=== PATIENT | male | born 1990 | race African-American/Black ===

== ENCOUNTER 2020-11-05 17:59 | Emergency (ER) | payer SELFPAY ==
[~2020-11-05] VITALS: Wt 95.3 kg
[~2020-11-05 17:59] MED LIST: IBU-8800 MG PO; MOTRIN600 MG PO
== END 2020-11-05 21:49 | disposition left against medical advice (07) ==
LOC: ED 17:59
DX: J00 Acute nasopharyngitis [common cold] (principal); Z53.21 Procedure and treatment not carried out due to patient leaving prior to being seen by health care provider

== ENCOUNTER 2022-05-06 18:36 | Inpatient (IN) | payer SELFPAY ==
[~2022-05-06] VITALS: Ht 187.9 cm; Wt 94.1 kg
[2022-05-06 18:50] VITALS: BP 133/82
[2022-05-06 20:44] LABS: HEMATOCRIT 53.2 % (42.0-52.0); MEAN CELL VOLUME 82.7 fl (80.0-94.0); MEAN CORPUSCULAR HGB 27.4 pg (27.0-31.0); MEAN CORPUSCULAR HGB CONC 33.1 g/dl (33.0-37.0); MEAN PLATELET VOLUME 9.7 fl (9.6-12.3); PLATELET COUNT AUTOMATED 608 10*3/uL (130-400); RED BLOOD COUNT 6.43 10*6/uL (4.50-5.90); WHITE BLOOD COUNT 14.5 10*3/uL (4.8-10.8)
[2022-05-06 21:00] LABS: MANUAL DIFF REFLEX YES
[2022-05-06 21:05] LABS: CREATININE 3.27 mg/dL (0.70-1.30); POTASSIUM 3.4 mmol/L (3.5-5.1); TOTAL PROTEIN 9.5 gm/dL (6.4-8.2)
[2022-05-06 21:26] LABS: ATYPICAL LYMPHS 2 % (0-0); PLATELET SUFFICIENCY HIGH (NORMAL); TOTAL CELLS COUNTED 100 #CELLS
[2022-05-07 01:28] LABS: CREATININE 2.61 mg/dL (0.70-1.30); POTASSIUM 3.5 mmol/L (3.5-5.1)
[2022-05-07 03:10] LABS: MEAN CELL VOLUME 82.6 fl (80.0-94.0); MEAN CORPUSCULAR HGB 28.4 pg (27.0-31.0); MEAN CORPUSCULAR HGB CONC 34.4 g/dl (33.0-37.0); MEAN PLATELET VOLUME 9.4 fl (9.6-12.3); PLATELET COUNT AUTOMATED 476 10*3/uL (130-400); RED BLOOD COUNT 5.45 10*6/uL (4.50-5.90); RED CELL DISTRI WIDTH 14.4 % (0-14.5); WHITE BLOOD COUNT 13.7 10*3/uL (4.8-10.8)
[2022-05-07 03:14] LABS: MANUAL DIFF REFLEX YES
[2022-05-07 03:27] LABS: CREATININE 2.58 mg/dL (0.70-1.30); POTASSIUM 3.6 mmol/L (3.5-5.1)
[2022-05-07 03:40] LABS: PLATELET SUFFICIENCY HIGH (NORMAL); TOTAL CELLS COUNTED 100 #CELLS
[2022-05-07 05:23] VITALS: BP 119/67
[2022-05-07 11:54] LABS: BILIRUBIN Negative (Negative); BLOOD Negative (Negative); CLARITY Clear (Clear); COLOR Yellow (Yellow); GLUCOSE Negative (Negative); KETONE Negative (Negative); LEUKO ESTERASE Negative (Negative); NITRITE Negative (Negative); PH 5.5 (4.5-8.0); SPECIFIC GRAVITY 1.015 (1.001-1.030); UROBILINOGEN 0.2 E.U./dl (0.0-1.0)
[2022-05-07 12:02] LABS: URINE AMPHETAMINES < 1000 (1000ng/ml); URINE BARBITURATES < 200 (200ng/ml); URINE BENZODIAZEPINES < 200 (200ng/ml); URINE CANNABINOIDS (THC) < 50 (50ng/ml); URINE COCAINE < 300 (300ng/ml); URINE METHADONE < 300 (300ng/ml); URINE OPIATES < 300 (300ng/ml)
[2022-05-07 12:03] LABS: URINE PHENCYCLIDINE < 25 (25ng/ml)
[2022-05-07 12:14] VITALS: BP 124/67
[2022-05-07 12:21] LABS: RBC 0-2 rbc/hpf (0-2); WBC 0-2 wbc/hpf (0-5)
[2022-05-07 14:52] VITALS: BP 143/63
[2022-05-07 16:23] VITALS: BP 168/93
[2022-05-07 20:00] VITALS: BP 162/76
[2022-05-08] VITALS: BP 149/86
[2022-05-08 06:56] LABS: HEMATOCRIT 41.1 % (42.0-52.0); MEAN CELL VOLUME 85.4 fl (80.0-94.0); MEAN CORPUSCULAR HGB 28.7 pg (27.0-31.0); MEAN CORPUSCULAR HGB CONC 33.6 g/dl (33.0-37.0); MEAN PLATELET VOLUME 9.3 fl (9.6-12.3); PLATELET COUNT AUTOMATED 457 10*3/uL (130-400); RED BLOOD COUNT 4.81 10*6/uL (4.50-5.90); RED CELL DISTRI WIDTH 14.3 % (0-14.5)
[2022-05-08 07:05] LABS: MANUAL DIFF REFLEX YES
[2022-05-08 07:14] LABS: CHLORIDE 107 mmol/L (98-107); POTASSIUM 3.4 mmol/L (3.5-5.1); SODIUM 138 mmol/L (136-145)
[2022-05-08 07:24] LABS: ALKALINE PHOSPHATASE 86 U/L (45-117); BUN 30 mg/dl (7-24); CREATININE 1.35 mg/dL (0.70-1.30); SGOT/AST 46 IU/L (3-35); SGPT/ALT 89 U/L (12-78)
[2022-05-08 07:33] LABS: ATYPICAL LYMPHS 2 % (0-0); TOTAL CELLS COUNTED 100 #CELLS
[2022-05-08 07:34] LABS: OVALOCYTES FEW; PLATELET SUFFICIENCY HIGH (NORMAL); POLYCHROMASIA SLIGHT
[2022-05-08 08:00] VITALS: BP 152/93
[2022-05-08 12:00] VITALS: BP 142/80
[2022-05-08 16:00] VITALS: BP 130/83
[2022-05-08 20:00] VITALS: BP 153/81
[2022-05-09] VITALS: BP 149/68
[2022-05-09 06:49] LABS: HEMATOCRIT 37.9 % (42.0-52.0); MEAN CELL VOLUME 85.4 fl (80.0-94.0); MEAN CORPUSCULAR HGB 29.1 pg (27.0-31.0); MEAN PLATELET VOLUME 9.1 fl (9.6-12.3); PLATELET COUNT AUTOMATED 417 10*3/uL (130-400); RED BLOOD COUNT 4.44 10*6/uL (4.50-5.90); RED CELL DISTRI WIDTH 13.7 % (0-14.5); WHITE BLOOD COUNT 10.9 10*3/uL (4.8-10.8)
[2022-05-09 06:51] LABS: MANUAL DIFF REFLEX YES
[2022-05-09 07:26] LABS: CHLORIDE 107 mmol/L (98-107); POTASSIUM 3.8 mmol/L (3.5-5.1); SODIUM 139 mmol/L (136-145)
[2022-05-09 07:31] LABS: ATYPICAL LYMPHS 2 % (0-0); BASOPHILS 1 % (0-1); PLATELET SUFFICIENCY HIGH (NORMAL); TOTAL CELLS COUNTED 100 #CELLS; TOXIC GRANULATION SLIGHT; VACUOLATION OF NEUTROPHILS SLIGHT
[2022-05-09 07:32] LABS: ALKALINE PHOSPHATASE 69 U/L (45-117); CREATININE 1.04 mg/dL (0.70-1.30); OVALOCYTES FEW; POLYCHROMASIA SLIGHT; SGOT/AST 44 IU/L (3-35); SGPT/ALT 81 U/L (12-78); TOTAL PROTEIN 6.4 gm/dL (6.4-8.2)
[2022-05-09 07:36] LABS: BUN 19 mg/dl (7-24)
[2022-05-09 08:00] VITALS: BP 169/90
[2022-05-09 08:07] LABS: HBSAG Negative (Negative); HEP B CORE AB, IGM Negative (Negative); HEPATITIS C ANTIBODY 0.1 (0.0-0.9)
[2022-05-09] MEDS ORDERED: METRONIDAZOLE500 M1 PO (09:54)
[2022-05-09] MEDS ORDERED: CIPRO500 MG PO (09:54)
== END 2022-05-09 10:42 | disposition home or self-care (01) | DRG 871 ==
LOC: ED 18:36 → EDHOLD 05-07 02:29 → 4E 05-07 15:35
PROVIDERS: Family Medicine; Internal Medicine; Student in an Organized Health Care Education/Training Program; ADMIT Student in an Organized Health Care Education/Training Program; ATTEND Student in an Organized Health Care Education/Training Program
DX: A41.9 Sepsis, unspecified organism (principal); N17.0 Acute kidney failure with tubular necrosis; R57.1 Hypovolemic shock; E86.0 Dehydration; K52.9 Noninfective gastroenteritis and colitis, unspecified; Z20.822 Contact with and (suspected) exposure to COVID-19; K21.9 Gastro-esophageal reflux disease without esophagitis; R73.9 Hyperglycemia, unspecified; D75.839 Thrombocytosis, unspecified; R65.20 Severe sepsis without septic shock; E83.41 Hypermagnesemia; K82.8 Other specified diseases of gallbladder; Z78.9 Other specified health status; Z88.1 Allergy status to other antibiotic agents; Z83.3 Family history of diabetes mellitus

== ENCOUNTER 2023-01-25 20:24 | Emergency (ER) | payer OTHER ==
[~2023-01-25] VITALS: Ht 187.9 cm; Wt 95.3 kg
[~2023-01-25 20:24] MED LIST changes: +CIPRO500 MG PO; +METRONIDAZOLE500 M1 PO
[2023-01-25 21:10] LABS: BASO % 0.4 % (0.0-1.0); EOS # 0.1 10*3/uL (0.0-0.4); EOS % 1.2 % (1.0-4.0); HEMATOCRIT 41.9 % (42.0-52.0); LYMPH # 4.5 10*3/uL (1.3-4.4); LYMPH % 40.7 % (27.0-41.0); MEAN CELL VOLUME 86.2 fl (80.0-94.0); MEAN CORPUSCULAR HGB 29.2 pg (27.0-31.0); MEAN CORPUSCULAR HGB CONC 33.9 g/dl (33.0-37.0); MEAN PLATELET VOLUME 9.1 fl (9.6-12.3); MONO # 0.8 10*3/uL (0.1-1.0); MONO % 7.1 % (3.0-9.0); NEUT # 5.5 10*3/uL (2.3-7.9); NEUT % 50.3 % (47.0-73.0); PLATELET COUNT AUTOMATED 381 10*3/uL (130-400); RED BLOOD COUNT 4.86 10*6/uL (4.50-5.90); WHITE BLOOD COUNT 10.9 10*3/uL (4.8-10.8)
[2023-01-25 21:29] LABS: ALKALINE PHOSPHATASE 77 U/L (46-116); BUN 8 mg/dl (9-23); CHLORIDE 107 mmol/L (98-107); LIPASE 31 U/L (12-53); POTASSIUM 3.5 mmol/L (3.4-5.1); SGPT/ALT 32 U/L (10-49); TOTAL PROTEIN 7.4 gm/dL (6.0-8.0)
[2023-01-25] MEDS ORDERED: ONDANSETRON4 MG SL (23:40)
== END 2023-01-26 00:02 | disposition home or self-care (01) ==
LOC: ED 20:24
PROVIDERS: Internal Medicine
DX: K52.9 Noninfective gastroenteritis and colitis, unspecified (principal); R55 Syncope and collapse; R03.0 Elevated blood-pressure reading, without diagnosis of hypertension; Z20.822 Contact with and (suspected) exposure to COVID-19; Z88.1 Allergy status to other antibiotic agents

== ENCOUNTER 2023-07-13 10:15 | Emergency (ER) | payer OTHER ==
[~2023-07-13] VITALS: Ht 187.9 cm; Wt 97.5 kg
[~2023-07-13 10:15] MED LIST changes: +ONDANSETRON4 MG SL
[2023-07-13] MEDS ORDERED: ONDANSETRON4 MG SL (11:46)
== END 2023-07-13 11:50 | disposition home or self-care (01) ==
LOC: ED 10:15
DX: R11.2 Nausea with vomiting, unspecified (principal); Z88.1 Allergy status to other antibiotic agents

== ENCOUNTER 2023-11-01 22:58 | Emergency (ER) | payer OTHER ==
[~2023-11-01] VITALS: Ht 187.9 cm; Wt 99.8 kg
[2023-11-01] MEDS ORDERED: LORazepam 1 MG TAB PO ONE (23:20)
== END 2023-11-02 00:48 | disposition home or self-care (01) ==
LOC: ED 22:58
DX: F41.9 Anxiety disorder, unspecified (principal); R42 Dizziness and giddiness; R00.2 Palpitations; Z88.1 Allergy status to other antibiotic agents

== ENCOUNTER → 2023-11-13 | Outpatient (CLI) | payer OTHER ==
[2023-11-13 08:32] LABS: BASO # 0.1 10*3/uL (0.0-0.1); BASO % 0.6 % (0.0-1.0); EOS # 0.1 10*3/uL (0.0-0.4); EOS % 1.4 % (1.0-4.0); HEMATOCRIT 46.2 % (42.0-52.0); LYMPH # 3.1 10*3/uL (1.3-4.4); LYMPH % 37.7 % (27.0-41.0); MEAN CELL VOLUME 90.6 fl (80.0-94.0); MEAN CORPUSCULAR HGB 29.2 pg (27.0-31.0); MEAN CORPUSCULAR HGB CONC 32.3 g/dl (33.0-37.0); MEAN PLATELET VOLUME 9.5 fl (9.6-12.3); MONO # 0.6 10*3/uL (0.1-1.0); MONO % 7.7 % (3.0-9.0); NEUT # 4.3 10*3/uL (2.3-7.9); NEUT % 52.4 % (47.0-73.0); PLATELET COUNT AUTOMATED 413 10*3/uL (130-400); RED CELL DISTRI WIDTH 13.2 % (0-14.5); RETICULOCYTE % 1.56 % (0.50-2.50); WHITE BLOOD COUNT 8.1 10*3/uL (4.8-10.8)
[2023-11-13 08:34] LABS: BILIRUBIN Negative (Negative); BLOOD Negative (Negative); CLARITY Clear (Clear); COLOR Yellow (Yellow); GLUCOSE Negative (Negative); KETONE Trace (Negative); LEUKO ESTERASE Negative (Negative); NITRITE Negative (Negative); PH 5.5 (4.5-8.0); SPECIFIC GRAVITY 1.025 (1.001-1.030); UROBILINOGEN 0.2 E.U./dl (0.0-1.0)
[2023-11-13 09:06] LABS: ALKALINE PHOSPHATASE 81 U/L (46-116); BUN 11 mg/dl (9-23); CHLORIDE 107 mmol/L (98-107); CHOLESTEROL 192 mg/dL (<200); GAMMA GLUTAMYL TRANSPEPTIDASE 61 U/L (0-73); LDL CHOLESTEROL 139 mg/dL (9-159); SGPT/ALT 48 U/L (5-49); T3 UPTAKE 28.4 % (22.4-36.7); THYROXINE (T4) TOTAL 6.8 ug/dl (4.5-10.9); TOTAL PROTEIN 7.4 gm/dL (6.0-8.0); TRIGLYCERIDES 76 mg/dl (<150); URIC ACID 7.4 mg/dL (3.7-9.2)
[2023-11-13 09:07] LABS: VITAMIN D, 25-HYDROXY 10.5 ng/mL (30-100)
[2023-11-13 10:50] LABS: BACTERIA 1+; MUCOUS 2+
[2023-11-16 15:30] LABS: ANTI-DSDNA ANTIBODIES 1 IU/mL (0-9)
== END ==
LOC: LAB 07:53
PROVIDERS: ATTEND Family Medicine
DX: R06.02 Shortness of breath (principal); R79.89 Other specified abnormal findings of blood chemistry; R53.83 Other fatigue; E78.5 Hyperlipidemia, unspecified; R74.8 Abnormal levels of other serum enzymes; E55.9 Vitamin D deficiency, unspecified

== ENCOUNTER → 2023-11-30 | Outpatient (CLI) | payer OTHER ==
[~2023-11-30] MED LIST changes: +GADOTERATE MEGLUMINE 10 MMOL/20 ML VIAL IV ONE
== END | disposition home or self-care (01) ==
LOC: MRI 02:24
PROVIDERS: ATTEND Family Medicine
DX: R51.9 Headache, unspecified (principal)